=== PATIENT | male | born 1995 | race Caucasian/White ===

== ENCOUNTER 2021-02-04 10:05 | Emergency (ER) | payer OTHER, SELFPAY ==
[2021-02-04 10:49] VITALS: BP 140/78; PULSE 80; RESP 18; TEMP 37.2; O2SAT 98; BMI 21.8
[2021-02-04 12:06] LABS: COVID19 -Nasal RAPID Negative (Negative)
== END 2021-02-04 11:59 | disposition left against medical advice (07) ==
PROVIDERS: Emergency Provider Emergency Medicine
DX: Z53.21 Procedure and treatment not carried out due to patient leaving prior to being seen by health care provider (principal); Z20.822 Contact with and (suspected) exposure to COVID-19
CPT/HCPCS: 87635; 99281; C9803